=== PATIENT | male | born 1990 | race American Indian/Alaskan Native ===

== ENCOUNTER 2017-03-31 17:29 | Emergency (ER) | payer SELFPAY ==
[2017-03-31 17:50] VITALS: BP 137/92; PULSE 99; RESP 16; TEMP 98.6; O2SAT 100; BMI 20.3
[2017-03-31] MEDS ORDERED: cefTRIAXone (Rocephin) 250 mg Inj IM STA (17:59)
--- NOTE | 2017-03-31 17:59 | ED PDOC ---
Arrival/HPI - General Historian: Patient - General Chief Complaint: Male Genitourinary Time Seen by Provider: 03/31/17 17:54 - History of Present Illness Narrative History of Present Illness (Text): 03/31/17 17:55 26 y/o male, no pmh, nkda, c/o unprotected sex recently and been having penile discharge x 2 days. Pt. stated that he doesn't use the condom, here for the prophylatic treatment, no urinary frequency or urgency, no burning urinary symptoms, no hematuria, no flank pain, no palpitation, no rash, no other medical or psychological complaints. (Vivek Bennett) Past Medical History - Provider Review Nursing Documentation Reviewed: Yes - Infectious Disease Hx of Infectious Diseases: None - Psychiatric Hx Substance Use: No - Anesthesia Hx Anesthesia: No Hx Anesthesia Reactions: No Hx Malignant Hyperthermia: No Family/Social History - Physician Review Nursing Documentation Reviewed: Yes Family/Social History: Unknown Family HX Smoking Status: Never Smoked Hx Alcohol Use: No Hx Substance Use: No Allergies/Home Meds Allergies/Adverse Reactions: Allergies No Known Allergies Allergy (Verified 03/31/17 17:55) Review of Systems - Review of Systems Constitutional: absent: Fatigue, Fevers Eyes: absent: Vision Changes ENT: absent: Hearing Changes Respiratory: absent: SOB, Cough Cardiovascular: absent: Chest Pain Gastrointestinal: absent: Abdominal Pain, Nausea, Vomiting Genitourinary Male: Other (penile discharge). absent: Dysuria, Frequency, Hematuria, Urinary Output Changes Musculoskeletal: absent: Arthralgias Skin: absent: Rash, Pruritis Neurological: absent: Headache, Dizziness Physical Exam Vital Signs Reviewed: Yes Temperature: Afebrile Blood Pressure: Hypertensive Pulse: Regular Respiratory Rate: Normal Appearance: Positive for: Well-Appearing, Non-Toxic, Comfortable Pain Distress: None Mental Status: Positive for: Alert and Oriented X 3 - Systems Exam Head: Present: Atraumatic, Normocephalic Pupils: Present: PERRL Extroacular Muscles: Present: EOMI Conjunctiva: Present: Normal Mouth: Present: Moist Mucous Membranes Neck: Present: Normal Range of Motion Respiratory/Chest: Present: Clear to Auscultation, Good Air Exchange. No: Respiratory Distress, Accessory Muscle Use Cardiovascular: Present: Regular Rate and Rhythm, Normal S1, S2. No: Murmurs Abdomen: Present: Normal Bowel Sounds. No: Tenderness, Distention, Peritoneal Signs Genitourinary Male: Present: Other (Pt. deferred) Back: Present: Normal Inspection Upper Extremity: Present: Normal Inspection. No: Cyanosis, Edema Lower Extremity: Present: Normal Inspection. No: Edema Neurological: Present: GCS=15, CN II-XII Intact, Speech Normal Skin: Present: Warm, Dry, Normal Color. No: Rashes Psychiatric: Present: Alert, Oriented x 3, Normal Insight, Normal Concentration Medical Decision Making ED Course and Treatment: 03/31/17 18:02 -HIV and STD test offered and the patient refused, only request prophylatic treatment for gc and chlamydia. -Rocephine and azithromycin ordered. -Discharge home with education on education on follow up with your own pmd within 2 days, STAY HYDRATED, bed rest, notify all sexual partners for STD testing and prophylatic treatment, use condom, return to the ER for any new or worsening signs or symptoms. (Vivek Bennett) I was available for consultation during PA evaluation. The chart was reviewed by me, and I agree with disposition. The documented history was done by the physician watershed tender. The documented physical exam was done by the physician watershed tender. The documented procedures were done by the physician watershed tender. (Larry Carroll) - Medication Orders Current Medication Orders: Discontinued Medications Azithromycin (Zithromax) 1,000 mg PO STAT STA PRN Reason: Protocol Stop: 03/31/17 18:00 Last Admin: 03/31/17 18:06 Dose: 1,000 mg Ceftriaxone Sodium (Rocephin) 250 mg IM STAT STA PRN Reason: Protocol Stop: 03/31/17 18:00 Last Admin: 03/31/17 18:06 Dose: 250 mg - PA / CENTRIFUGAL SEPARATOR / Resident Statement MD/DO has reviewed & agrees with the documentation as recorded. Disposition/Present on Arrival - Present on Arrival Any Indicators Present on Arrival: No History of DVT/PE: No History of Uncontrolled Diabetes: No Urinary Catheter: No History of Decub. Ulcer: No History Surgical Site Infection Following: None - Disposition Have Diagnosis and Disposition been Completed?: Yes Disposition Time: 18:04 Patient Plan: Discharge - Disposition Diagnosis: Penile discharge, History of unprotected sex Disposition: HOME/ ROUTINE Condition: GOOD Discharge Instructions (ExitCare): Dehydration (ED) Print Language: JAPANESE Additional Instructions: -Discharge home with education on education on follow up with your own pmd within 2 days, STAY HYDRATED, bed rest, notify all sexual partners for STD testing and prophylatic treatment, use condom, return to the ER for any new or worsening signs or symptoms. Referrals: [facility] at [facility] [place] [Outside] - Follow up with primary Forms: WORK NOTE
== END 2017-03-31 18:27 | disposition home or self-care (01) ==
LOC: ED 17:29
DX: R36.9 Urethral discharge, unspecified (principal)
CPT/HCPCS: 96372; 99283; J0696

== ENCOUNTER 2018-05-06 20:20 | Emergency (ER) | payer BC ==
[2018-05-06 20:21] VITALS: BMI 20.3
[2018-05-06 20:33] VITALS: RESP 18; O2SAT 100
--- NOTE | 2018-05-06 20:42 | ED PDOC ---
Arrival/HPI - General Chief Complaint: Finger,Hand,&Wrist Time Seen by Provider: 05/06/18 20:36 Historian: Patient - History of Present Illness Narrative History of Present Illness (Text): 05/06/18 20:39 Patient is a 27 year old male who presents to the Emergency department for right hand lump secondary to fall. Patient reports that 2 weeks ago he fell and landed on the back of his right hand. He subsequently experienced right hand swelling and pain. Since his fall he mentions that his right hand swelling has improved and he has full range of motion. Patient developed a lump at the base of the third right finger. He admits that the lump is improving, but would like it to be evaluated because he works in the [employer]. Time/Duration: > week Symptom Onset: Gradual Symptom Course: Improving Past Medical History - Infectious Disease Hx of Infectious Diseases: None - Psychiatric Hx Substance Use: No - Anesthesia Hx Anesthesia: No Hx Anesthesia Reactions: No Hx Malignant Hyperthermia: No Family/Social History Smoking Status: Never Smoked Hx Alcohol Use: Yes Frequency of alcohol use: Socially Hx Substance Use: No Allergies/Home Meds Allergies/Adverse Reactions: Allergies No Known Allergies Allergy (Verified 05/06/18 20:33) Home Medications: Home Meds Medication Instructions Recorded Confirmed No Known Home Med 05/06/18 05/06/18 Review of Systems - Review of Systems Musculoskeletal: absent: Joint Swelling, Myalgias Neurological: absent: Focal Weakness Psychiatric: absent: Depression Physical Exam Vital Signs Reviewed: Yes Vital Signs Temp Pulse Resp BP Pulse Ox 05/06/18 20:30 99 F 92 H 18 114/89 100 Temperature: Afebrile Blood Pressure: Normal Pulse: Regular Respiratory Rate: Normal Appearance: Positive for: Well-Appearing Mental Status: Positive for: Alert and Oriented X 3 - Systems Exam Head: Present: Atraumatic, Normocephalic Pupils: Present: PERRL Extroacular Muscles: Present: EOMI Conjunctiva: Present: Normal Neck: Present: Normal Range of Motion Upper Extremity: Present: Normal Inspection, Normal ROM (Normal ROM of right hand), NORMAL PULSES, Neurovascularly Intact (Right hand neurovascularly intact) , Other (2cm x 2cm circular mass to base of 3rd finger of right hand. ). No: Edema, Tenderness, Swelling Neurological: Present: GCS=15, CN II-XII Intact, Speech Normal, Motor Func Grossly Intact, Normal Sensory Function Skin: Present: Warm, Dry Psychiatric: Present: Alert, Oriented x 3, Normal Insight, Normal Concentration Medical Decision Making ED Course and Treatment: 05/06/18 20:45 Impression: Patient is a 27 year old male who presents to the emergency department for evaluation of a lump at the base of his third right finger. Plan: -- Right hand X-ray -- Reassess and disposition Prior Visits: Notes and results from previous visits were reviewed. Progress Notes: 05/06/18 21:08 Right hand X-ray shows no fractures. Interpreted by me. - RAD Interpretation Radiology Orders: 05/06/18 20:36 HAND RIGHT 3 VIEWS [RAD] Stat Biomedical Equipment Support Specialist: ED Physician - Scribe Statement The provider has reviewed the documentation as recorded by the Scribe Shorty Santos Provider Scribe Attestation: All medical record entries made by the Scribe were at my direction and personally dictated by me. I have reviewed the chart and agree that the record accurately reflects my personal performance of the history, physical exam, medical decision making, and the department course for this patient. I have also personally directed, reviewed, and agree with the discharge instructions and disposition. Disposition/Present on Arrival - Present on Arrival Any Indicators Present on Arrival: No History of DVT/PE: No History of Uncontrolled Diabetes: No Urinary Catheter: No History of Decub. Ulcer: No History Surgical Site Infection Following: None - Disposition Have Diagnosis and Disposition been Completed?: Yes Diagnosis: Lipoma, Cyst Disposition: HOME/ ROUTINE Disposition Time: 21:07 Patient Plan: Discharge Patient Problems: Current Active Problems Problem Status Onset Lipoma Acute Condition: GOOD Discharge Instructions (ExitCare): Ganglion Cyst Additional Instructions: Follow-up with plastic surgeon as referred above. Return to ED if condition worsens. Follow-up with PMD within 2 days Referrals: Brandon Dorantes [Primary Care Provider] - Follow up with primary Kwaku Morrison MD [Staff Provider] - Follow up with primary Forms: [employer] (Armenian), WORK NOTE
[2018-05-06 21:44] VITALS: BP 114/89; PULSE 92; TEMP 99
--- NOTE | 2018-05-07 08:31 | RAD ---
PROCEDURE: Right Hand Radiographs. HISTORY: swelling COMPARISON: None. FINDINGS: BONES: Bone alignment and mineralization are normal. There is no acute displaced fracture or bone destruction. JOINTS: Normal. No osteoarthritic changes. SOFT TISSUES: There is soft tissue swelling in the 1st web space. OTHER FINDINGS: None. IMPRESSION: No acute fracture or dislocation.
== END 2018-05-06 21:26 | disposition home or self-care (01) ==
LOC: ED 20:20
DX: D17.39 Benign lipomatous neoplasm of skin and subcutaneous tissue of other sites (principal); L72.9 Follicular cyst of the skin and subcutaneous tissue, unspecified

== ENCOUNTER 2018-07-05 12:43 | Emergency (ER) | payer BC ==
[2018-07-05 12:43] VITALS: BMI 20.3
[2018-07-05 13:44] VITALS: RESP 18; O2SAT 99
[2018-07-05] MEDS ORDERED: cefTRIAXone (Rocephin) 250 mg Inj IM STA (15:27)
--- NOTE | 2018-07-05 15:34 | ED PDOC ---
Arrival/HPI - General Historian: Patient - History of Present Illness Narrative History of Present Illness (Text): 07/05/18 16:05 27-year-old male presents today with a four-day history of dysuria and urinary frequency. Patient denies penile discharge. He denies testicular pain. Patient denies nausea vomiting diarrhea or constipation. He denies back pain. Patient states he is sexually active with 2 separate partners without protection. Patient denies dizziness or weakness no chest pain or shortness of breath. Patient states symptoms are intermittent. <Huyen Huerta - Last Filed: 07/05/18 17:54> <Red Shea - Last Filed: 07/07/18 16:47> - General Chief Complaint: Male Genitourinary Time Seen by Provider: 07/05/18 15:04 Past Medical History - Provider Review Nursing Documentation Reviewed: Yes - Travel History Have you recently traveled outside [place] w/in the past 3 mons?: No - Infectious Disease Hx of Infectious Diseases: None - Psychiatric Hx Substance Use: No - Anesthesia Hx Anesthesia: No Hx Anesthesia Reactions: No Hx Malignant Hyperthermia: No <Huyen Huerta - Last Filed: 07/05/18 17:54> Family/Social History - Physician Review Nursing Documentation Reviewed: Yes Family/Social History: Unknown Family HX Smoking Status: Never Smoked Hx Alcohol Use: Yes Hx Substance Use: No <Huyen Huerta - Last Filed: 07/05/18 17:54> Allergies/Home Meds <Huyen Huerta - Last Filed: 07/05/18 17:54> <Red Shea - Last Filed: 07/07/18 16:47> Allergies/Adverse Reactions: Allergies banana Allergy (Verified 07/05/18 13:44) RASH Review of Systems - Review of Systems Constitutional: absent: Fatigue, Fevers Respiratory: absent: SOB, Cough Cardiovascular: absent: Chest Pain, Palpitations Gastrointestinal: absent: Abdominal Pain, Constipation, Diarrhea, Nausea, Vomiting Genitourinary Male: Dysuria, Frequency, Other (no Penile discharge). absent: Urinary Output Changes Musculoskeletal: absent: Arthralgias, Back Pain, Neck Pain Skin: absent: Rash, Pruritis Neurological: absent: Headache, Dizziness Psychiatric: absent: Anxiety, Depression <Huyen Huerta - Last Filed: 07/05/18 17:54> Physical Exam Vital Signs Reviewed: Yes Vital Signs Temp Pulse Resp BP Pulse Ox 07/05/18 13:41 99.3 F 88 18 138/82 99 Temperature: Afebrile Blood Pressure: Normal Pulse: Regular Respiratory Rate: Normal Appearance: Positive for: Well-Appearing, Non-Toxic, Comfortable Pain Distress: None Mental Status: Positive for: Alert and Oriented X 3 - Systems Exam Head: Present: Atraumatic Mouth: Present: Moist Mucous Membranes Respiratory/Chest: Present: Clear to Auscultation, Good Air Exchange. No: Respiratory Distress, Accessory Muscle Use Cardiovascular: Present: Regular Rate and Rhythm, Normal S1, S2. No: Murmurs Abdomen: No: Tenderness, Rebound, Guarding Genitourinary Male: Present: Normal External Genitalia, Circumcised Penis, Other (chaparoned by ZEINAB em EMT). No: Penile Discharge, Testicle Tenderness, Penile Swelling, Masses, Erythema, Testicle Swelling Upper Extremity: Present: Normal ROM Lower Extremity: Present: Normal ROM Neurological: Present: GCS=15, Speech Normal Skin: Present: Warm, Dry, Normal Color. No: Rashes Psychiatric: Present: Alert, Oriented x 3 <Huyen Huerta - Last Filed: 07/05/18 17:54> Vital Signs Temp Pulse Resp BP Pulse Ox 07/05/18 16:20 98.6 F 87 18 135/95 H 99 07/05/18 16:04 98.6 F 87 18 135/95 H 99 07/05/18 13:41 99.3 F 88 18 138/82 99 <Red Shea - Last Filed: 07/07/18 16:47> Medical Decision Making ED Course and Treatment: 07/05/18 16:20 Patient is nontoxic well-appearing in no distress with stable vital signs UA: Positive leukocytes, 6-8 epithelials Ceftriaxone 250 mg IM Zithromax 1 g p.o. given Gonorrhea and Chlamydia cultures are pending. We will discharge the patient home with Keflex to cover for possible UTI. Advised patient to refrain from sex for 10 days followup with the primary care physician within the next 2 days or return if symptoms worsen persist or if new symptoms develop. Patient verbalizes understanding of discharge instructions and need for immediate followup. all aspects of this case were discussed the attending of record. Impression: Dysuria Follow up primary care physician within the next 2 days Keflex; 1 capsule twice daily x 7 days. Follow up with the urologist FOllow up with the PMD within the next 2 days. Return if symptoms worsen persist or if new symptoms develop. <Huyen Huerta - Last Filed: 07/05/18 17:54> - Lab Interpretations Microbiology Results: Microbiology Results 07/05/18 15:00 Urine Urine Culture - Final No Growth (<1,000 CFU/ML) Lab Results: Lab Results 07/05/18 15:00: Urine Color Yellow, Urine Appearance Clear, Urine pH 6.0, Ur Specific [place] 1.025, Urine Protein Negative, Urine Glucose (UA) Negative, Urine Ketones Negative, Urine Blood Negative, Urine Nitrate Negative, Urine Bilirubin Negative, Urine Urobilinogen 1.0 H, Ur Leukocyte Esterase Trace H, Urine RBC TEST NOT PERFORMED, Urine WBC 5 - 10, Ur Epithelial Cells 6 - 8 - Medication Orders Current Medication Orders: Discontinued Medications Azithromycin (Zithromax) 1,000 mg PO STAT STA; Protocol Stop: 07/05/18 15:28 Last Admin: 07/05/18 16:12 Dose: 1,000 mg Ceftriaxone Sodium (Rocephin) 250 mg IM STAT STA; Protocol Stop: 07/05/18 15:28 Last Admin: 07/05/18 16:13 Dose: 250 mg IM Administration Charges Document 07/05/18 16:13 OCS (Rec: 07/05/18 16:13 OCS [id number]) Injection Site MAR Injection Site Left Deltoid Charges for Administration # of IM Administrations 1 <Red Shea - Last Filed: 07/07/18 16:47> - PA / WEB PRESSMAN / Resident Statement / has reviewed & agrees with the documentation as recorded. <Red Shea - Last Filed: 07/07/18 16:47> Disposition/Present on Arrival - Present on Arrival Any Indicators Present on Arrival: No History of DVT/PE: No History of Uncontrolled Diabetes: No Urinary Catheter: No History of Decub. Ulcer: No History Surgical Site Infection Following: None - Disposition Have Diagnosis and Disposition been Completed?: Yes Disposition Time: 15:28 Patient Plan: Discharge <Huyen Huerta - Last Filed: 07/05/18 17:54> <Red Shea - Last Filed: 10/09/18 16:47> - Disposition Diagnosis: Dysuria Disposition: HOME/ ROUTINE Condition: GOOD Discharge Instructions (ExitCare): Dysuria, Adult (DC) Additional Instructions: Follow up primary care physician within the next 2 days Follow up with the Urologist Keflex 1 capsule twice daily x 7 days. Return if symptoms worsen persist or if new symptoms develop. Prescriptions: Cephalexin [Keflex] 500 mg PO BID #14 capsule Referrals: Dona Frazier MD [Medical Doctor] - Follow up with primary [facility] [Outside] - Follow up with primary Chalo Matt MD [Staff Provider] - Follow up with primary Forms: [employer] (Kiswahili)
[2018-07-05 15:47] LABS: URINE APPEARANCE CLEAR (CLEAR); URINE COLOR YELLOW (YELLOW)
[2018-07-05 15:48] LABS: URINE BILIRUBIN NEGATIVE (NEGATIVE); URINE BLOOD NEGATIVE (NEGATIVE); URINE GLUCOSE (UA) NEGATIVE (NEGATIVE); URINE PROTEIN NEGATIVE mg/dL (<30 mg/dL)
[2018-07-05 15:49] LABS: URINE LEUKOCYTE ESTERASE TRACE Leu/uL (NEGATIVE)
[2018-07-05 16:08] VITALS: BP 135/95; PULSE 87
[2018-07-05 16:09] VITALS: TEMP 98.6
== END 2018-07-05 16:20 | disposition home or self-care (01) ==
LOC: ED 12:43
DX: R30.0 Dysuria (principal)
CPT/HCPCS: 81001; 87086; 87491; 87591; 96372; 99283; J0696